=== PATIENT | female | born 1985 | race Caucasian/White ===

== ENCOUNTER → 2023-11-13 14:00 | Outpatient (REF) | payer OTHER, SELFPAY | LOC: HWRAD 14:00 | PROVIDERS: ATTENDING PHYSICIAN Nurse Practitioner | DX: R19.04 Left lower quadrant abdominal swelling, mass and lump (principal) | CPT/HCPCS: 76705 ==

== ENCOUNTER → 2025-06-23 15:06 | Outpatient (REF) | payer OTHER, SELFPAY | LOC: RAD 15:06 | PROVIDERS: ATTENDING PHYSICIAN Advanced Practice Midwife; FAMILY PHYSICIAN Nurse Practitioner | DX: R10.2 Pelvic and perineal pain (principal) | CPT/HCPCS: 76830; 76856 ==

== ENCOUNTER → 2025-09-23 15:02 | Outpatient (REF) | payer OTHER, SELFPAY | LOC: MRI 3T 15:02 | PROVIDERS: ATTENDING PHYSICIAN Advanced Practice Midwife; FAMILY PHYSICIAN Nurse Practitioner | DX: R10.20 Pelvic and perineal pain unspecified side (principal) | CPT/HCPCS: 72197; A9575 ==